=== PATIENT | female | born 1955 | race Caucasian/White ===

== ENCOUNTER → 2016-09-11 | Outpatient (CLI) | payer OTHER ==
--- NOTE | 2016-09-11 09:24 | REPMRS ---
Patient History The patient states she has not had a clinical breast exam in over a year. Patient is postmenopausal and has history of other cancer at age 47. Family history of colorectal cancer in maternal grandmother at age 50 or over and breast cancer in maternal grandmother at age 50 or over. Digital Woman Screen Mammo: September 11, 2016 - Exam #: [id number] Bilateral CC and MLO view(s) were taken. Technologist: Tereza Jacobs, Technologist Prior study comparison: January 18, 2015, digital woman screen mammo performed at [facility] [employer]. January 02, 2014, digital woman screen mammo performed at [facility] [facility]. FINDINGS: There are scattered fibroglandular densities. There has been no change in the appearance of the mammogram from the prior studies. There is a mild amount of residual fibroglandular tissue which is fairly symmetric. There is no interval development of dominant mass, architectural distortion, or clustered microcalcification suggestive of malignancy. ASSESSMENT: BI-RADS/ACR category 1 mammogram. Negative. Recommendation Routine screening mammogram in 1 year (for women over age 40). This mammogram was interpreted with the aid of an FDA-approved computer-aided dectection system. Electronically Signed By: Sonu Mustafa MD 09/11/16 0923
--- NOTE | 2016-09-14 09:56 | DEXA ---
AP SPINE L1 - L4 1.339 1.2 1.5 LT FEMUR TOTAL 0.999 -0.1 0.2 RT FEMUR TOTAL 0.980 -0.2 0.1 TOTAL BODY TOTAL OTHER DUAL FEMUR FRAX* ASSESSMENT Risk factors: None. 10 year probability of fracture Major osteoporotic fracture 6.6 % Hip fracture 0.3 % COMMENTS: Normal bone densitometry of the spine and hips. The density of the spine has increased 1.3% since 03/29/2008. The density of the left hip has decreased -11.2% since 03/29/2008. The density of the right hip has decreased 9.8% since 03/29/2008. The increased density of the spine does not represent a significant change. The decreased density of the left hip does represent a significant change. The decreased density of the right hip does represent a significant change. FOLLOW-UP: Recommendation for the next bone density exam: 5 years. JUAN
== END ==
LOC: M WHC 07:48
PROVIDERS: ATTEND Internal Medicine
DX: Z12.31 Encounter for screening mammogram for malignant neoplasm of breast (principal); M85.80 Other specified disorders of bone density and structure, unspecified site

== ENCOUNTER → 2017-08-16 | Outpatient (CLI) | payer OTHER ==
--- NOTE | 2017-08-16 11:57 | REP ---
RIGHT SHOULDER SERIES: Three views. HISTORY: Pain. FINDINGS: The right glenohumeral and acromioclavicular joints are normally aligned. Periarticular soft tissues are unremarkable. No erosive changes are seen. IMPRESSION: Negative right shoulder radiographs. Signed by Mynor Ren MD 08/16/2017 12:39 P
== END ==
LOC: M WUC 09:43
PROVIDERS: ATTEND Physician Assistant Medical
DX: M25.519 Pain in unspecified shoulder (principal)

== ENCOUNTER → 2017-12-28 | Outpatient (CLI) | payer OTHER | LOC: M RAD 11:15 | DX: M79.604 Pain in right leg (principal) | CPT/HCPCS: 93971 ==

== ENCOUNTER → 2018-04-25 | Outpatient (CLI) | payer OTHER | LOC: M WHC 15:21 | DX: Z12.31 Encounter for screening mammogram for malignant neoplasm of breast (principal) | CPT/HCPCS: 77067 ==

== ENCOUNTER → 2018-05-30 | Outpatient (REF) | payer OTHER | LOC: M LAB REF 17:12 | DX: N30.01 Acute cystitis with hematuria (principal) ==

== ENCOUNTER 2018-07-21 06:51 | Day surgery (SDC) | payer OTHER ==
[2018-07-21] MEDS: NS 1,000 ML IV (07:00)
[2018-07-21] MEDS ORDERED: PROPOFOL 200 MG/20 ML VIAL As Ordered ×2 (07:04→08:41)
[2018-07-21] MEDS ORDERED: LIDOCAINE 2% INJ 100 MG/5 ML SDV (FOR ANES.) As Ordered (07:04)
== END 2018-07-21 08:55 | disposition home or self-care (01) ==
LOC: M OPP 06:51
DX: Z12.11 Encounter for screening for malignant neoplasm of colon (principal); Z83.71 Family history of colonic polyps; G43.909 Migraine, unspecified, not intractable, without status migrainosus; M12.9 Arthropathy, unspecified; Z79.899 Other long term (current) drug therapy; Z78.0 Asymptomatic menopausal state
CPT/HCPCS: 45378

== ENCOUNTER → 2018-09-09 | Outpatient (REF) | payer OTHER ==
[~2018-09-09] MED LIST: DEPA1TAB3 PO; SUMA50TA2 PO; VERA240T6 PO
[2018-09-12 14:01] LABS: IRON (FE) 71 UG/DL (50-170); PERCENT SATURATION 19.4 % (13.2-45.0); TOTAL IRON BINDING CAPACITY 366 UG/DL (250-450); TOTAL PROTEIN 5.9 GM/DL (6.4-8.2)
[2018-09-12 15:38] LABS: VITAMIN B12 LEVEL 385 PG/ML
[2018-09-12 15:39] LABS: FOLATE 11.1 NG/ML
[2018-09-13 12:54] LABS: ALBUMIN 3.89 GM/DL (3.29-5.55); ALBUMIN % 65.9 % (55.8-66.1); ALPHA-1-GLOBULIN % 4.3 % (2.9-4.9); ALPHA-1-GLOBULINS 0.25 GM/DL (0.17-0.41); ALPHA-2-GLOBULINS 0.53 GM/DL (0.42-0.99); BETA-1-GLOBULINS % 6.7 % (4.7-7.2); BETA-2-GLOBULINS 0.25 GM/DL (0.19-0.55); BETA-2-GLOBULINS % 4.2 % (3.2-6.5); GAMMA GLOBULIN % 9.9 % (11.1-18.8); GAMMA GLOBULINS 0.58 GM/DL (0.65-1.58)
== END ==
LOC: M LAB REF 11:48
PROVIDERS: ATTEND Internal Medicine
DX: D64.9 Anemia, unspecified (principal)

== ENCOUNTER → 2018-12-10 | Outpatient (REF) | payer OTHER | LOC: M LAB REF 09:21 | PROVIDERS: ATTEND Physician Assistant | DX: R30.0 Dysuria (principal) ==

== ENCOUNTER → 2018-12-24 | Outpatient (REF) | payer OTHER | LOC: M LAB REF 09:49 | PROVIDERS: ATTEND Physician Assistant | DX: R30.0 Dysuria (principal) ==

== ENCOUNTER → 2019-05-12 | Outpatient (CLI) | payer MEDICARE, OTHER ==
--- NOTE | 2019-05-12 12:28 | REPMRS ---
Patient History The patient states she has not had a clinical breast exam in over a year. Family history of colorectal cancer at age 50 or over and breast cancer at age 50 or over in maternal grandmother. No Hormone Replacement Therapy 3D TOMOSYNTHESIS WAS PERFORMED. [facility] lifetime risk for breast cancer is 8.6%. Digital Woman Screen Mammo: May 12, 2019 - Exam #: [id number] Bilateral CC and MLO view(s) were taken. Technologist: Carole Abdi Technologist Prior study comparison: April 25, 2018, bilateral digital woman screen mammo performed at [facility]. September 11, 2016, digital woman screen mammo performed at [facility]. FINDINGS: The breast tissue is heterogeneously dense. This may lower the sensitivity of mammography. There has been no change in the appearance of the mammogram from the prior studies. There is a moderate amount of residual fibroglandular tissue which is fairly symmetric. There is no interval development of dominant mass, areas of architectural distortion, or clustered microcalcification typical of malignancy. Assessment: BI-RADS/ACR category 1 mammogram. Negative Mammogram. Recommendation Routine screening mammogram in 1 year (for women over age 40). This mammogram was interpreted with the aid of an FDA-approved computer-aided dectection system. Electronically Signed By: Sonu Mustafa MD 05/12/19 0872
== END ==
LOC: M WHC 10:15
PROVIDERS: ATTEND Internal Medicine
DX: Z12.31 Encounter for screening mammogram for malignant neoplasm of breast (principal); Z80.3 Family history of malignant neoplasm of breast; Z80.0 Family history of malignant neoplasm of digestive organs

== ENCOUNTER → 2020-06-05 | Outpatient (CLI) | payer MEDICARE, OTHER ==
--- NOTE | 2020-06-05 15:31 | REPMRS ---
Patient History The patient states she has not had a clinical breast exam in over a year. Family history of colorectal cancer at age 50 or over and breast cancer at age 50 or over in maternal grandmother. No Hormone Replacement Therapy 3D TOMOSYNTHESIS WAS PERFORMED. [facility] for [facility] 8.1%. Volpara density b. Digital Woman Screen Mammo: June 05, 2020 - Exam #: [id number] Bilateral CC and MLO view(s) were taken. Technologist: Carline Thornton, Technologist Prior study comparison: May 12, 2019, bilateral digital woman screen mammo performed at [facility]. April 25, 2018, bilateral digital woman screen mammo performed at [facility]. FINDINGS: There are scattered fibroglandular densities. There has been no change in the appearance of the mammogram from the prior studies. There is a mild amount of residual fibroglandular tissue which is fairly symmetric. There is no interval development of dominant mass, architectural distortion, or clustered microcalcification suggestive of malignancy. Assessment: BI-RADS/ACR category 1 mammogram. Negative Mammogram. Recommendation Routine screening mammogram in 1 year (for women over age 40). This mammogram was interpreted with the aid of an FDA-approved computer-aided dectection system. Electronically Signed By: Sonu Mustafa MD 06/05/20 [id number]
== END ==
LOC: M WHC 13:40
PROVIDERS: ATTEND Internal Medicine
DX: Z12.31 Encounter for screening mammogram for malignant neoplasm of breast (principal)

== ENCOUNTER 2020-07-10 12:27 | Inpatient (IN) | payer MEDICARE, OTHER ==
[~2020-07-10] VITALS: Ht 172.7 cm; Wt 99.4 kg
--- NOTE | 2020-07-10 13:51 | REP ---
INDICATION: CHEST PAIN. COMPARISON: None. TECHNIQUE: Semi-erect AP portable exam. FINDINGS: Monitoring electrodes are seen. The lungs are well inflated and clear. Pleural angles are sharp. Heart is not felt to be enlarged. There is evidence of a hiatal hernia behind the heart. Pulmonary vasculature is not increased. No significant bony abnormality. IMPRESSION: Hiatal hernia. Otherwise no acute disease. <Electronically signed by Jesus Ren > 07/10/20 [id number]
[2020-07-10 14:02] LABS: BASO # 0.1 10^3/uL (0.0-0.2); BASO % 0.9 % (0.0-1.0); EOS % 0.8 % (0.0-3.0); HEMATOCRIT 31.1 % (36.0-47.0); HEMOGLOBIN 8.8 g/dl (12.0-15.5); LYMPH # 1.3 10^3/uL (1.5-5.0); LYMPH % 24.4 % (24.0-44.0); MEAN CORPUSCULAR HEMOGLOBIN 20.7 pg (27.0-33.0); MEAN CORPUSCULAR HGB CONC 28.3 g/dl (32.0-36.5); MONO # 0.7 10^3/uL (0.0-0.8); MONO % 12.4 % (0.0-5.0); NEUTROPHILS # 3.3 10^3/uL (1.5-8.5); NEUTROPHILS % 61.1 % (36.0-66.0); PLATELET COUNT, AUTOMATED 252 10^3/uL (150-450); RED BLOOD COUNT 4.26 10^6/uL (4.00-5.40); WHITE BLOOD COUNT 5.3 10^3/uL (4.0-10.0)
[2020-07-10 14:26] LABS: ALBUMIN 3.2 GM/DL (3.2-5.2); ALT/SGPT 16 U/L (12-78); BILIRUBIN,DIRECT < 0.1 MG/DL (0.0-0.2); BILIRUBIN,TOTAL 0.2 MG/DL (0.2-1.0); LIPASE 91 U/L (73-393); TOTAL PROTEIN 6.2 GM/DL (6.4-8.2)
[2020-07-10] MEDS ORDERED: ISOVUE-370 76% 100ML VIAL As Ordered ONE (15:00)
[2020-07-10 15:16] LABS: NT-PRO BNP 43 PG/ML (<125)
--- NOTE | 2020-07-10 16:00 | REP ---
INDICATION: shortness of breath r/o PE. COMPARISON: Portable chest 07/10/2020 TECHNIQUE: CT angiogram chest performed following the intravenous administration of 100 cc of Isovue 370. Sagittal and coronal reconstruction images are performed. FINDINGS: Lungs: Clear, no infiltrate or nodule. Mediastinum: Moderate-sized hiatal hernia. No pathologic sized mediastinal or hilar adenopathy.. Pulmonary arteries: There are bilateral of filling defects involving both lower lobes in multiple segments. Also appears to be filling defect at the proximal course of the right upper lobe pulmonary artery and the proximal right middle lobe.. Posterior segment of the left upper lobe and anterior segment show some thrombi in their proximal course as well as multiple segments of the left lower lobe. No main, proximal right or left pulmonary artery thrombi or saddle embolus. Bruna: No adenopathy. Axilla: No adenopathy. Pleura: No effusion. Heart: Not enlarged. Thoracic aorta: No aneurysm or dissection. Upper abdominal structures: Moderately large incarcerated but not strangulated hiatal hernia. The upper abdominal organs visible were grossly unremarkable. Visualized osseous structures: Degenerative changes in the spine, age appropriate. No other bony finding. IMPRESSION: There are extensive pulmonary emboli involving bilateral lung bolaños and all 5 lobes with segmental arteries and some lobar arteries involved. No proximal or saddle embolus in the mediastinum. No effusion or infiltrates. No mediastinal or hilar adenopathy. Moderate-sized fixed hiatal hernia. No other significant finding. Critical Findings: Bilateral extensive pulmonary emboli involving all lobes. The critical information above was relayed directly by me by telephone to SARAY MEDEIROS on 07/10/2020 at 3:55 pm with readback verification. <Electronically signed by Leeroy Brannon > 07/10/20 [id number]
--- NOTE | 2020-07-10 16:22 | REP ---
INDICATION: pain, swelling with PE COMPARISON: None. TECHNIQUE: Real time compression and duplex Doppler interrogation of the left lower extremity deep venous system is performed. FINDINGS: The left common femoral, superficial femoral and popliteal veins are fully compressible with transducer pressure and demonstrate normal spontaneous and phasic flow, without evidence of deep venous thrombosis. IMPRESSION: No evidence of deep venous thrombosis of the left lower extremity femoral popliteal venous system. <Electronically signed by Sonu Mustafa > 07/10/20 [id number]
[2020-07-10] MEDS ORDERED: HEPARIN DRIP 25,000 UNITS in IV 1 EA IV SCH (16:54)
[2020-07-10] MEDS ORDERED: HEPARIN SOD (PORCINE) 5000UNITS/ML 1ML VIAL/SYRINGE IV ONE (17:00)
[2020-07-10 17:23] LABS: INR 0.94; PROTHROMBIN TIME 12.8 SECONDS (12.5-14.3)
[2020-07-10 17:24] LABS: PARTIAL THROMBOPLASTIN TIME 29.3 SECONDS (24.2-38.5)
[2020-07-10] MEDS ORDERED: VERA240C PO (17:26)
[2020-07-10] MEDS ORDERED: DIVA500T9 PO (17:26)
[2020-07-10] MEDS ORDERED: MAALOX 30 ML SUSP *UDC PO PRN (18:15)
[2020-07-10] MEDS ORDERED: MOM 30ML SUSPENSION UDC PO PRN (18:15)
[2020-07-10] MEDS ORDERED: ACETAMINOPHEN TAB 650MG DOSE (2X325MG) PO PRN (18:15)
--- NOTE | 2020-07-10 18:24 | HPEPDOC ---
General Date of Admission 07/10/20 Date of Service: Jul 10, 2020 Chief Complaint The patient is a 65-year-old female admitted with a reason for visit of Shortness Of Breath. Source: Patient History of Present Illness 65 year old female with PMH of only Migraines presented to the ED with 1 day history of exertional dyspnea and palpitations. She was in her usal state of luis miguel yesterday. last night she was woken up from deep sleep with severe left calf cramping pain. It was 8/10 in intensity and lasted for several minutes then slowly improved with massaging the calf but did not go away completely. Today after climbing a flight of stairs in her home she became extremely winded and had to sit down for several minutes to catch her breath. All morning she has been feeling very winded and was getting winded even on talking on the phone with her daughter. SHe called her PMDs office and she was instructed to come to ED. In ED CT angio of [facility] chest showed bilateral pulmonary embolism. Left leg doppler was negative for DVT. SHe did nto have any recent travel . Her last tra rikki was in beginning of April by car to [place] and back the same day about total 5 hours by car. Home Medications Scheduled Apixaban (Eliquis) 5 Mg Tablet, 1 TAB PO BID Divalproex Sodium (Divalproex Sodium ER) 500 Mg Tab.er.24h, 500 MG PO BID, (Reported) Verapamil HCl (Verapamil ER) 240 Mg Cap24h.pel, 240 MG PO QHS, (Reported) Scheduled PRN Sumatriptan Succinate (Sumatriptan Succinate) 50 Mg Tab, 50 MG PO ASDIRECTED PRN for MIGRAINE, (Reported) Allergies Coded Allergies: amoxicillin (Verified Allergy, Unknown, 07/10/20) erythromycin base (Verified Allergy, Unknown, 07/10/20) Past Medical History Medical History Migraine Surgical History Right knee arthroscopy an meniscus repair tonsillectomy Family History Significant Family History: Cancer (colon cncer in grandmother, Mother melanome, father skin cancers) No clotting history in the family Social History * Smoker: non-smoker Alcohol: Denies Drugs: denies A-FIB/CHADSVASC A-FIB History Current/History of A-Fib/PAF?: No Review of Systems Constitutional: Reports: Weakness, Fatigue; Denies: Chills, Fever, Night Sweats Eyes: Denies: Pain, Vision change ENT: Reports: Head Aches; Denies: Ear Pain, Dysphagia Skin: Denies: Rash, Lesions, Breakdown Pulmonary: Reports: Dyspnea Cardiovascular: Reports: Palpitations Gastrointestinal: Reports: Constipation; Denies: Nausea, Vomiting, Abdominal Pain, Diarrhea Genitourinary: Denies: Dysuria, Frequency, Incontinence, Retention Hematologic: Denies: Bruising, Bleeding Excessively Musculoskeletal: Reports: Leg Pain (left) Neurological: Denies: Weakness, Numbness, Change in speech, Confusion Physical Examination General Exam: Positive: Alert, Cooperative, No Acute Distress Eye Exam: Positive: PERRLA, Conjunctiva & lids normal, EOMI; Negative: Sclera icteric ENT Exam: Positive: Atraumatic, Mucous membr. moist/pink, Pharynx Normal Neck Exam: Positive: Supple; Negative: JVD, thyromegaly Chest Exam: Positive: Clear to auscultation, Normal air movement Heart Exam: Positive: Rate Normal, Regular Rhythm, Normal S1, Normal S2; Negative: Murmurs, Rubs Telemetry: Positive: No significant arrhythmia Abdomen Exam: Positive: Normal bowel sounds, Soft; Negative: Tenderness, Hepatospenomegaly Extremity Exam: Positive: Normal pulses, Tenderness (in left calf); Negative: Clubbing, Cyanosis, Edema Skin Exam: Positive: Nl turgor and temperature; Negative: Breakdown, Lesion Neuro Exam: Positive: Normal Speech, Normal Tone, Cranial Nerves 3-12 NL Psych Exam: Positive: Memory Intact, Oriented x 3 Vital Signs Vital Signs Date Time Temp Pulse Resp B/P (MAP) Pulse Ox O2 Delivery O2 Flow Rate FiO2 07/10/20 15:40 81 16 131/76 (94) Room Air 07/10/20 15:30 95 07/10/20 12:28 96.8 Laboratory Data Labs 24H Laboratory Tests 2 07/10/20 13:37: POC Troponin I (Misc) 0.02 07/10/20 13:38: Prothrombin Time 12.8, Prothromb Time International Ratio 0.94, Activated Partial Thromboplast Time 29.3 07/10/20 13:50: Immature Granulocyte % (Auto) 0.4, Neutrophils (%) (Auto) 61.1, Lymphocytes (%) (Auto) 24.4, Monocytes (%) (Auto) 12.4H, Eosinophils (%) (Auto) 0.8, Basophils (%) (Auto) 0.9, Neutrophils # (Auto) 3.3, Lymphocytes # (Auto) 1.3L, Monocytes # (Auto) 0.7, Eosinophils # (Auto) 0.0, Basophils # (Auto) 0.1, Nucleated Red Blood Cells % (auto) 0.0, Total Bilirubin 0.2, Direct Bilirubin < 0.1, Aspartate Amino Transf (AST/SGOT) 10, Alanine Aminotransferase (ALT/SGPT) 16, Alkaline Phosphatase 52, LL-Zwb-U-Type Natriuretic Peptide 43, Total Protein 6.2L, Albumin 3.2, Albumin/Globulin Ratio 1.1L, Lipase 91, Thyroid Stimulating Hormone (TSH) 1.880 07/10/20 13:51: POC Lactate (Misc Panel) 1.77 07/10/20 13:55: POC Glucose (Misc Panel) 106H, POC Sodium (Misc Panel) 141, POC Potassium (Misc Panel) 4.1, POC Chloride (Misc Panel) 107, POC Total CO2 (Misc Panel) 25.0, POC Blood Urea Nitrogen (Misc Panel 14, POC Ionized Calcium (Misc Panel) 5.0, POC Creatinine (Misc Panel) 0.6, POC Hematocrit (Misc Panel) 29.0L CBC/BMP Laboratory Tests 07/10/20 13:50 Assessment/Plan 65 year old female with PMH of only Migraines presented to the ED with 1 day history of exertional dyspnea and palpitations. She was in her usal state of luis miguel yesterday. last night she was woken up from deep sleep with severe left calf cramping pain. It was 8/10 in intensity and lasted for several minutes then slowly improved with massaging the calf but did not go away completely. Today after climbing a flight of stairs in her home she became extremely winded and had to sit down for several minutes to catch her breath. All morning she has been feeling very winded and was getting winded even on talking on the phone with her daughter. She called her PMDs office and she was instructed to come to ED. In ED CT angio of the chest showed bilateral pulmonary embolism. Acute bilateral Pulmonary embolism will send hypercoagulable work up heparin infusion will scan the right leg also PTT q 6 hours. Anemia Unknown acute or chronic. will get iron profile, vit b12 and folate, stool for occult blood request records from PMD Migraine continue home meds. if hypotensive will hold verapamil. 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 Plan / VTE VTE Prophylaxis Ordered?: Yes LUIS ENRIQUE ROSADO MD Jul 10, 2020 18:24
[2020-07-10 18:50] VITALS: BP 160/81
--- NOTE | 2020-07-10 19:17 | REPVR ---
PROCEDURE INFORMATION: Exam: US Duplex Right Upper Extremity Veins, Limited Exam date and time: 07/10/2020 7:02 PM Age: 65 years old Clinical indication: Pain; Leg, lower; Right; Additional info: Pulmonary embolism TECHNIQUE: Imaging protocol: Real-time Duplex ultrasound of the Right Upper Extremity with 2-D glover scale, color Doppler flow and spectral waveform analysis with image documentation. Limited exam focused on the right upper extremity veins. COMPARISON: No relevant prior studies available. FINDINGS: Right deep veins: Unremarkable. Axillary and brachial veins are patent throughout without thrombus. Normal Doppler waveforms. Normal compressibility and/or augmentation response. Visualized internal jugular and subclavian veins are patent. Right superficial veins: Unremarkable. Visualized cephalic and basilic veins are patent without thrombus. Soft tissues: Unremarkable. IMPRESSION: No deep venous thrombus demonstrated in the right lower extremity. Electronically signed by: Yariel Buck On 07/10/2020 19:16:13 PM
[2020-07-10 19:57] LABS: C REACTIVE PROTEIN QUANTITATIV < 0.30 MG/DL (0.00-0.30)
[2020-07-10 20:17] LABS: ERYTHROCYTE SEDIMENTATION RATE 7 mm/hr (0-30)
--- NOTE | 2020-07-10 20:54 | ECGEPIP ---
[facility] - ED Test Date: 2020-07-10 Pat Name: ARMANDO PENALOZA Department: Room: - Gender: Female Advanced Clinical Specialist: BRIAN : 1955 Requested By: LARS Grider Order Number: [id number] Reading MD: Lars Miller Measurements Intervals [place] Rate: 88 P: 39 TN: 175 QRS: -23 QRSD: 91 T: 37 QT: 329 QTc: 400 Interpretive Statements SINUS RHYTHM INFERIOR MYOCARDIAL INFARCTION, PROBABLY OLD Delayed anterior R wave progression Baseline artifact Comparison tracing not on file Electronically Signed on 07-10-2020 20:54:44 EST by Lars Miller
[2020-07-10] MEDS ORDERED: SUMAtriptan SUCCINATE 25 MG TAB PO PRN (23:00)
[2020-07-10] MEDS: DIVALPROEX 500MG *ER* TAB PO SCH (23:29)
[2020-07-10] MEDS: VERAPAMIL 120 MG SR TAB PO SCH (23:30)
[2020-07-11] VITALS: BP 125/73
[2020-07-11] MEDS: HEPARIN SOD (PORCINE) 5000UNITS/ML 1ML VIAL/SYRINGE IV PRN (01:49)
[2020-07-11 04:00] VITALS: BP 103/68
[2020-07-11 05:23] LABS: BASO # 0.1 10^3/uL (0.0-0.2); EOS # 0.1 10^3/uL (0.0-0.5); EOS % 1.4 % (0.0-3.0); HEMATOCRIT 27.1 % (36.0-47.0); HEMOGLOBIN 7.8 g/dl (12.0-15.5); LYMPH # 2.1 10^3/uL (1.5-5.0); LYMPH % 42.6 % (24.0-44.0); MEAN CORPUSCULAR HEMOGLOBIN 20.9 pg (27.0-33.0); MEAN CORPUSCULAR HGB CONC 28.8 g/dl (32.0-36.5); MEAN CORPUSCULAR VOLUME 72.7 fl (80.0-96.0); MONO # 0.6 10^3/uL (0.0-0.8); NEUTROPHILS # 2.2 10^3/uL (1.5-8.5); NEUTROPHILS % 43.6 % (36.0-66.0); PLATELET COUNT, AUTOMATED 214 10^3/uL (150-450); RED BLOOD COUNT 3.73 10^6/uL (4.00-5.40)
[2020-07-11 05:50] LABS: BLOOD UREA NITROGEN 14 MG/DL (7-18); CALCIUM LEVEL 8.5 MG/DL (8.8-10.2); CARBON DIOXIDE LEVEL 25 MEQ/L (21-32); CHLORIDE LEVEL 112 MEQ/L (98-107); GLOMERULAR FILTRATION RATE > 60.0 (>45); GLUCOSE, FASTING 93 MG/DL (70-100); POTASSIUM SERUM 4.1 MEQ/L (3.5-5.1); SODIUM LEVEL 144 MEQ/L (136-145)
[2020-07-11 07:58] LABS: FERRITIN 10 NG/ML (8-252); IRON (FE) 22 UG/DL (50-170); PERCENT SATURATION 5.9 % (13.2-45.0); TOTAL IRON BINDING CAPACITY 371 UG/DL (250-450)
[2020-07-11 08:00] VITALS: BP 122/70
[2020-07-11] MEDS: DIVALPROEX 500MG *ER* TAB PO SCH ×2 (09:21→21:45)
[2020-07-11 09:54] LABS: VITAMIN B12 LEVEL 687 PG/ML (247-911)
[2020-07-11 09:56] LABS: FOLATE 12.5 NG/ML (>5.4)
--- NOTE | 2020-07-11 11:25 | IPNPDOC ---
Subjective Date Seen The patient was seen on 07/11/20. Subjective Chief Complaint/HPI Still has dyspnea on exertion however says feels better than yesterday. Has requested records from Dr Castellon's office for previous blood work. Objective Physical Examination General Exam: Positive: Alert, Cooperative, No Acute Distress Eye Exam: Positive: PERRLA, Conjunctiva & lids normal, EOMI; Negative: Sclera icteric ENT Exam: Positive: Atraumatic, Mucous membr. moist/pink, Pharynx Normal Neck Exam: Positive: Supple; Negative: JVD, thyromegaly Chest Exam: Positive: Clear to auscultation, Normal air movement Heart Exam: Positive: Rate Normal, Regular Rhythm, Normal S1, Normal S2; Negative: Murmurs, Rubs Telemetry: Positive: No significant arrhythmia Abdomen Exam: Positive: Normal bowel sounds, Soft; Negative: Tenderness, Hepatospenomegaly Extremity Exam: Positive: Normal pulses, Tenderness (in left calf); Negative: Clubbing, Cyanosis, Edema Skin Exam: Positive: Nl turgor and temperature; Negative: Breakdown, Lesion Neuro Exam: Positive: Normal Speech, Normal Tone, Cranial Nerves 3-12 NL Psych Exam: Positive: Memory Intact, Oriented x 3 Assessment /Plan Assessment 65 year old female with PMH of only Migraines presented to the ED with 1 day history of exertional dyspnea and palpitations. She was in her usal state of luis miguel yesterday. last night she was woken up from deep sleep with severe left calf cramping pain. It was 8/10 in intensity and lasted for several minutes then slowly improved with massaging the calf but did not go away completely. Today after climbing a flight of stairs in her home she became extremely winded and had to sit down for several minutes to catch her breath. All morning she has been feeling very winded and was getting winded even on talking on the phone with her daughter. She called her PMDs office and she was instructed to come to ED. In ED CT angio of the chest showed bilateral pulmonary embolism. Acute bilateral Pulmonary embolism hypercoagulable work up ordered heparin infusion No DVT noted. PTT q 6 hours. Iron deficiency Anemia hh 8.8 to 7.9 today . NO overt bleeding. No h/o Anemia Colonoscopy in 2018 was normal. will monitor hh continue with Heparin infusion. will consult hematology Migraine continue home meds. if hypotensive will hold verapamil. 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 Plan/VTE VTE Prophylaxis Ordered?: Yes VS, I&O, 24H, Fishbone Vital Signs/I&O Vital Signs Date Time Temp Pulse Resp B/P (MAP) Pulse Ox O2 Delivery O2 Flow Rate FiO2 07/11/20 08:00 97.2 78 18 122/70 (87) 93 Room Air I&O- Last 24 Hours up to 6 AM 07/11/20 06:00 Intake Total 44 ml Output Total 0 ml Balance 44 ml Laboratory Data 24H LABS Laboratory Tests 2 07/10/20 13:37: POC Troponin I (Misc) 0.02 07/10/20 13:38: Prothrombin Time 12.8, Prothromb Time International Ratio 0.94, Activated Pa rtial Thromboplast Time 29.3 07/10/20 13:50: Immature Granulocyte % (Auto) 0.4, Neutrophils (%) (Auto) 61.1, Lymphocytes (%) (Auto) 24.4, Monocytes (%) (Auto) 12.4H, Eosinophils (%) (Auto) 0.8, Basophils (%) (Auto) 0.9, Neutrophils # (Auto) 3.3, Lymphocytes # (Auto) 1.3L, Monocytes # (Auto) 0.7, Eosinophils # (Auto) 0.0, Basophils # (Auto) 0.1, Nucleated Red Blood Cells % (auto) 0.0, Erythrocyte Sedimentation Rate 7, Total Bilirubin 0.2, Direct Bilirubin < 0.1, Aspartate Amino Transf (AST/SGOT) 10, Alanine Aminotransferase (ALT/SGPT) 16, Alkaline Phosphatase 52, C-Reactive Protein, Quantitative < 0.30, KZ-Eeu-Z-Type Natriuretic Peptide 43, Total Protein 6.2L, Albumin 3.2, Albumin/Globulin Ratio 1.1L, Lipase 91, Thyroid Stimulating Hormone (TSH) 1.880 07/10/20 13:51: POC Lactate (Misc Panel) 1.77 07/10/20 13:55: POC Glucose (Misc Panel) 106H, POC Sodium (Misc Panel) 141, POC Potassium (Misc Panel) 4.1, POC Chloride (Misc Panel) 107, POC Total CO2 (Misc Panel) 25.0, POC Blood Urea Nitrogen (Misc Panel 14, POC Ionized Calcium (Misc Panel) 5.0, POC Creatinine (Misc Panel) 0.6, POC Hematocrit (Misc Panel) 29.0L 07/10/20 20:01: Activated Partial Thromboplast Time 125.2*H 07/10/20 20:04: 07/11/20 00:13: Activated Partial Thromboplast Time 29.2 07/11/20 04:46: Immature Granulocyte % (Auto) 0.4, Neutrophils (%) (Auto) 43.6, Lymphocytes (%) (Auto) 42.6, Monocytes (%) (Auto) 11.0H, Eosinophils (%) (Auto) 1.4, Basophils (%) (Auto) 1.0, Neutrophils # (Auto) 2.2, Lymphocytes # (Auto) 2.1, Monocytes # (Auto) 0.6, Eosinophils # (Auto) 0.1, Basophils # (Auto) 0.1, Nucleated Red Blood Cells % (auto) 0.0, Activated Partial Thromboplast Time > 240.0*H, Anion Gap 7L, Glomerular Filtration Rate > 60.0, Calcium Level 8.5L, Iron Level 22L, Total Iron Binding Capacity 371, Transferrin % Saturation 5.9L, Ferritin 10, Vitamin B12 Level 687, Folate 12.5 CBC/BMP Laboratory Tests 07/10/20 13:50 07/11/20 04:46 LUIS ENRIQUE ROSADO MD Jul 11, 2020 11:24
[2020-07-11 12:00] VITALS: BP 138/84
[2020-07-11] MEDS ORDERED: IRON SUCROSE 500 MG in NS 250 ML IV ONE (15:00)
[2020-07-11] MEDS: HEPARIN DRIP 25,000 UNITS in IV 1 EA IV SCH (15:44)
[2020-07-11 16:00] VITALS: BP 124/73
--- NOTE | 2020-07-11 17:39 | CR.PDOC ---
General Date of Consultation: Jul 11, 2020 Consultation REASON FOR CONSULTATION/CHIEF COMPLAINT: pulmonary embolism and anemia . HISTORY OF PRESENT ILLNESS: [This is a 65 year old lady. She has migraines. She takes Verapamil and Depakote to prevent her migraines She is now admitted with shortness of breath. work up found a hiatal hernia, Iron deficiency and bilateral pulmonary embolism. ]. ALLERGIES: Please see below. HOME MEDICATIONS: Please see below. PAST MEDICAL HISTORY: 1. [migraines ]. 2. . PAST SURGICAL HISTORY: 1. [tonsillectomy ] 2. [ surgery for torn meniscus in her knee. ] FAMILY HISTORY: Father: [father had atrial fibrillation ] Mother: [dementia ] Siblings: Children: [alive and well ] Hereditary Diseases: Unexpected deaths due to medical reasons: SOCIAL HISTORY: Marital status and/or living arrangements: Children: Employment: Tobacco use:[denies ] ETOH: Illicit drug use: IV drug use: Other relevant social factors: REVIEW OF SYSTEMS: CONSTITUTIONAL: [ no fever no chill and no malaise ]. HEENT: [she has a headaches . This is not her typical migraine]. CARDIOVASCULAR: [ no palpitations ]. RESPIRATORY: [she is short of breath . GENITOURINARY: [no dysuria no hematuria ]. MUSCULOSKELETAL: [cramp in her left leg ]. GASTROINTESTINAL: [she has dyspepsia a churning in her stomach . She has black stools ]. SKIN: [no bruising ]. NEUROLOGICAL: [headaches ]. PSYCHIATRIC: . ENDOCRINE: . HEMATOLOGIC/LYMPHATIC: [denies easy brusing ]. ALLERGIC/IMMUNOLOGIC: . PHYSICAL EXAMINATION: VITAL SIGNS: Please see below. GENERAL APPEARANCE: awake and alert. oriented to person and place. . HEENT: [normocephalic atraumatic ]. RESPIRATORY: [bilateral breath sounds no wheezing ]. CARDIOVASCULAR: [Regular rate and rhythm ]. ABDOMEN: soft non tender . EXTREMITIES: [no pedal edema ]. NEUROLOGICAL: [cranial nerves grossly intact. moving all extremities. normal speech and hearing ]. PSYCHIATRIC: [normal mood ]. LABORATORY DATA: Please see below. ASSESSMENT/PLAN: 1. [Iron deficiency anemia ]. 2. [Hiatal hernia ]. 3. Black stools consider upper gastrointestinal bleeding . 4. Pulmonary embolism. Plan: Check her stools for blood . If stool occult is positive for blood then this might be a good time to do a bleeding scan to localize the source of bleeding. Consider getting a gastroenterology consult. Serial monitor her hemoglobin. Vital Signs/I&O Vital Signs Date Time Temp Pulse Resp B/P (MAP) Pulse Ox O2 Delivery O2 Flow Rate FiO2 07/11/20 12:00 96.7 78 18 138/84 (102) 96 Room Air I&O- Last 24 Hours up to 6 AM 07/11/20 05:59 Intake Total 44 ml Balance 44 ml Laboratory Data Labs 24H Laboratory Tests 2 07/10/20 20:01: Activated Partial Thromboplast Time 125.2*H 07/10/20 20:04: 07/11/20 00:13: Activated Partial Thromboplast Time 29.2 07/11/20 04:46: Activated Partial Thromboplast Time > 240.0*H, Immature Granulocyte % (Auto) 0.4, Neutrophils (%) (Auto) 43.6, Lymphocytes (%) (Auto) 42.6, Monocytes (%) (Auto) 11.0H, Eosinophils (%) (Auto) 1.4, Basophils (%) (Auto) 1.0, Neutrophils # (Auto) 2.2, Lymphocytes # (Auto) 2.1, Monocytes # (Auto) 0.6, Eosinophils # (Auto) 0.1, Basophils # (Auto) 0.1, Nucleated Red Blood Cells % (auto) 0.0, Anion Gap 7L, Glomerular Filtration Rate > 60.0, Calcium Level 8.5L, Iron Level 22L, Total Iron Binding Capacity 371, Transferrin % Saturation 5.9L, Ferritin 10, Vitamin B12 Level 687, Folate 12.5 07/11/20 13:29: Activated Partial Thromboplast Time 161.9*H 07/11/20 13:55: Lab Scanned Report Miscellaneous Lab CBC/BMP Laboratory Tests 07/11/20 04:46 Allergies Coded Allergies: amoxicillin (Verified Allergy, Unknown, 07/10/20) erythromycin base (Verified Allergy, Unknown, 07/10/20) Home Medications Scheduled Divalproex Sodium (Divalproex Sodium ER) 500 Mg Tab.er.24h, 500 MG PO BID, (Reported) Verapamil HCl (Verapamil ER) 240 Mg Cap24h.pel, 240 MG PO QHS, (Reported) Scheduled PRN Sumatriptan Succinate (Sumatriptan Succinate) 50 Mg Tab, 50 MG PO ASDIRECTED PRN for MIGRAINE, (Reported) NALINI RIVAS MD Jul 11, 2020 17:39
[2020-07-11 18:23] LABS: HEMATOCRIT 26.2 % (36.0-47.0); HEMOGLOBIN 7.9 g/dl (12.0-15.5)
[2020-07-11] MEDS: GASTROGRAFIN SOLUTION 30ML PO SCH ×2 (18:36→19:06)
[2020-07-11 19:00] VITALS: BP 145/76
[2020-07-11] MEDS ORDERED: ISOVUE-370 76% 100ML VIAL As Ordered ONE (19:45)
--- NOTE | 2020-07-11 21:20 | REPVR ---
PROCEDURE INFORMATION: Exam: CT Abdomen And Pelvis With Contrast Exam date and time: 07/11/2020 8:32 PM Age: 65 years old Clinical indication: Other: Iron def anemia; Additional info: Iron def anemia with acute pe with family h/o colon cancer TECHNIQUE: Imaging protocol: Computed tomography of the abdomen and pelvis with intravenous contrast. Radiation optimization: All CT scans at this facility use at least one of these dose optimization techniques: automated exposure control; mA and/or kV adjustment per patient size (includes targeted exams where dose is matched to clinical indication); or iterative reconstruction. Contrast material: ISOVUE 370; Contrast volume: 100 ml; Contrast route: INTRAVENOUS (IV); COMPARISON: No relevant prior studies available. FINDINGS: Mediastinal space: There is a large hiatal hernia. Liver: Normal. No mass. Gallbladder and bile ducts: Normal. No calcified stones. No ductal dilation. Pancreas: Normal. No ductal dilation. Spleen: Normal. No splenomegaly. Adrenal glands: Normal. No mass. Kidneys and ureters: Small cysts in both kidneys. No hydronephrosis. Stomach and bowel: Unremarkable. No obstruction. No mucosal thickening. No mass or inflammatory changes. Appendix: No evidence of appendicitis. Intraperitoneal space: Unremarkable. No free air. No significant fluid collection. Vasculature: Pulmonary emboli are noted in both lower lobes. Aorta is normal size. No aneurysm or dissection. Lymph nodes: Unremarkable. No enlarged lymph nodes. Urinary bladder: Unremarkable as visualized. Reproductive: Unremarkable as visualized. Bones/joints: There are advanced degenerative changes in the spine and pelvis. Soft tissues: Unremarkable. IMPRESSION: 1. Bilateral lower lobe pulmonary emboli, similar to the prior chest CT. 2. Large hiatal hernia. 3. No acute findings. COMMENTS: Consistent with the [employer]'s Incidental Findings Committee white paper (J Am Kain Radiol 2018): Any incidental renal lesion less than 1 cm or classified as too small to characterize, or any incidental cystic renal lesion characterized as simple-appearing, is likely benign. No follow-up imaging is recommended for these lesions per consensus recommendations based on imaging criteria. Electronically signed by: Cholo Araya On 07/11/2020 21:20:01 PM
[2020-07-11] MEDS: VERAPAMIL 120 MG SR TAB PO SCH (21:45)
[2020-07-12] VITALS (7 sets, daily range): BP systolic 104–119; BP diastolic 60–74
[2020-07-12 05:34] LABS: BASO # 0.1 10^3/uL (0.0-0.2); BASO % 0.7 % (0.0-1.0); EOS % 0.3 % (0.0-3.0); HEMATOCRIT 28.2 % (36.0-47.0); HEMOGLOBIN 8.2 g/dl (12.0-15.5); LYMPH # 1.2 10^3/uL (1.5-5.0); LYMPH % 17.2 % (24.0-44.0); MEAN CORPUSCULAR HEMOGLOBIN 21.1 pg (27.0-33.0); MEAN CORPUSCULAR HGB CONC 29.1 g/dl (32.0-36.5); MEAN CORPUSCULAR VOLUME 72.7 fl (80.0-96.0); MONO # 0.8 10^3/uL (0.0-0.8); MONO % 12.4 % (0.0-5.0); NEUTROPHILS # 4.7 10^3/uL (1.5-8.5); PLATELET COUNT, AUTOMATED 226 10^3/uL (150-450); RED BLOOD COUNT 3.88 10^6/uL (4.00-5.40); WHITE BLOOD COUNT 6.8 10^3/uL (4.0-10.0)
[2020-07-12 06:00] LABS: BLOOD UREA NITROGEN 14 MG/DL (7-18); CALCIUM LEVEL 8.6 MG/DL (8.8-10.2); CARBON DIOXIDE LEVEL 25 MEQ/L (21-32); CHLORIDE LEVEL 111 MEQ/L (98-107); CREATININE FOR GFR 0.69 MG/DL (0.55-1.30); GLOMERULAR FILTRATION RATE > 60.0 (>45); GLUCOSE, FASTING 108 MG/DL (70-100); SODIUM LEVEL 143 MEQ/L (136-145)
[2020-07-12] MEDS: HEPARIN SOD (PORCINE) 5000UNITS/ML 1ML VIAL/SYRINGE IV PRN (06:47)
[2020-07-12] MEDS: OMEPRAZOLE 20 MG CAP PO SCH (08:14)
[2020-07-12] MEDS: DIVALPROEX 500MG *ER* TAB PO SCH ×2 (08:14→21:25)
[2020-07-12 08:34] LABS: APPEARANCE, URINE CLEAR (CLEAR); BACTERIA, URINE AUTO NEGATIVE (NEGATIVE); BILIRUBIN, URINE AUTO NEGATIVE (NEGATIVE); BLOOD, URINE BLOOD NEGATIVE (NEGATIVE); COLOR, URINE YELLOW (YELLOW); GLUCOSE, URINE (UA) AUTO NEGATIVE (NEGATIVE); KETONE, URINE AUTO NEGATIVE (NEGATIVE); LEUKOCYTE ESTERASE, URINE AUTO NEGATIVE (NEGATIVE); NITRITE, URINE AUTO NEGATIVE (NEGATIVE); PROTEIN, URINE AUTO NEGATIVE (NEGATIVE); RBC, URINE AUTO 0 /HPF (0-3); SPECIFIC GRAVITY URINE AUTO 1.035 (1.002-1.035); SQUAMOUS EPITHELIAL CELL UR AU 2 /HPF (0-6); UROBILINOGEN, URINE AUTO 0.2 mg/dL (0.0-2.0); WBC, URINE AUTO 1 /HPF (0-3)
[2020-07-12] MEDS ORDERED: ELIQ5TAB PO (12:40)
--- NOTE | 2020-07-12 12:54 | IPNPDOC ---
Subjective Date Seen The patient was seen on 07/12/20. Subjective Chief Complaint/HPI Patient had severe crampy abdominal pain in the epigastrium and severe back pain after drinking the oral contrast. She then had 1 episode of large vomiting after which she felt better. Dylan is having dark stools but it is hard and difficult to push out. Today she does report that she has been having trouble eating fo the past several months and would feel full only after a few bites. SHe though has not lost any significant weight. No betsey blood in stools but stool for occult blood is positive. Objective Physical Examination General Exam: Positive: Alert, Cooperative, No Acute Distress Eye Exam: Positive: PERRLA, Conjunctiva & lids normal, EOMI; Negative: Sclera icteric ENT Exam: Positive: Atraumatic, Mucous membr. moist/pink, Pharynx Normal Neck Exam: Positive: Supple; Negative: JVD, thyromegaly Chest Exam: Positive: Clear to auscultation, Normal air movement Heart Exam: Positive: Rate Normal, Regular Rhythm, Normal S1, Normal S2; Negative: Murmurs, Rubs Telemetry: Positive: No significant arrhythmia Abdomen Exam: Positive: Normal bowel sounds, Soft; Negative: Tenderness, Hepatospenomegaly Extremity Exam: Positive: Normal pulses, Tenderness (in left calf); Negative: Clubbing, Cyanosis, Edema Skin Exam: Positive: Nl turgor and temperature; Negative: Breakdown, Lesion Neuro Exam: Positive: Normal Speech, Normal Tone, Cranial Nerves 3-12 NL Psych Exam: Positive: Memory Intact, Oriented x 3 Assessment /Plan Assessment 65 year old female with PMH of only Migraines presented to the ED with 1 day history of exertional dyspnea and palpitations. She was in her usal state of luis miguel yesterday. last night she was woken up from deep sleep with severe left calf cramping pain. It was 8/10 in intensity and lasted for several minutes then slowly improved with massaging the calf but did not go away completely. Today after climbing a flight of stairs in her home she became extremely winded and had to sit down for several minutes to catch her breath. All morning she has been feeling very winded and was getting winded even on talking on the phone with her daughter. She called her PMDs office and she was instructed to come to ED. In ED CT angio of the chest showed bilateral pulmonary embolism. Acute bilateral Pulmonary embolism hypercoagulable work up ordered heparin infusion No DVT noted. PTT q 6 hours. Acute on chronic Iron deficiency Anemia Probably has ongoing slow GIB. hh 8.2 Hb from sep 2019 from PMD was 10.0 Colonoscopy in 2018 was normal. given 500 mg of venofer stool occult blood x 1 positive will monitor hh continue with Heparin infusion. appreciate hematology input CT abd and pelvis with contrast negative except for hiatal hernia Planned for bleeding scan today. she will need EGD ad colonoscopy soon but in view of the acute Pulmonary embolism iis is safer to hold off for 6 weeks unless patient started bleeding profusely. Migraine continue home meds. if hypotensive will hold verapamil. 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 Hiatal hernia in CT will start on omeprazole Plan/VTE VTE Prophylaxis Ordered?: Yes VS, I&O, 24H, Fishbone Vital Signs/I&O Vital Signs Date Time Temp Pulse Resp B/P (MAP) Pulse Ox O2 Delivery O2 Flow Rate FiO2 07/12/20 04:00 97.7 86 18 110/60 (77) 90 Room Air I&O- Last 24 Hours up to 6 AM 07/12/20 07:00 Intake Total 1380 ml Output Total 300 ml Balance 1080 ml Laboratory Data 24H LABS Laboratory Tests 2 07/11/20 13:29: Activated Partial Thromboplast Time 161.9*H 07/11/20 13:55: Lab Scanned Report Miscellaneous Lab 07/11/20 21:44: Activated Partial Thromboplast Time 122.9*H 07/12/20 05:12: Activated Partial Thromboplast Time 56.4H, Immature Granulocyte % (Auto) 0.4, Neutrophils (%) (Auto) 69.0H, Lymphocytes (%) (Auto) 17.2L, Monocytes (%) (Auto) 12.4H, Eosinophils (%) (Auto) 0.3, Basophils (%) (Auto) 0.7, Neutrophils # (Auto) 4.7, Lymphocytes # (Auto) 1.2L, Monocytes # (Auto) 0.8, Eosinophils # (Auto) 0.0, Basophils # (Auto) 0.1, Nucleated Red Blood Cells % (auto) 0.0, Anion Gap 7L, Glomerular Filtration Rate > 60.0, Calcium Level 8.6L CBC/BMP Laboratory Tests 07/11/20 18:14 07/12/20 05:12 Microbiology Microbiology 07/11/20 Stool Occult Blood (SILVESTRE) - Final, Complete LUIS ENRIQUE ROSADO MD Jul 12, 2020 06:40
--- NOTE | 2020-07-12 14:01 | REP ---
INDICATION: falling hemoglobin balck stool s. COMPARISON: Comparison is made with CT imaging from July 11, 2020.. TECHNIQUE: 27.5 mCi of technetium 99 M RBC (Ultratag Kit) is administered. Sequence show flow images are obtained in the anterior projection and sequential 5 minutes follow-up images are acquired of the abdomen and pelvis for an imaging observation period of 60 minutes. FINDINGS: Expected blood pool uptake is seen in the liver spleen kidneys aorta and iliac vessels and vena cava. There is no evidence of colonic or small bowel tracer labeling. No evidence of localizable gastrointestinal bleeding seen. IMPRESSION: No evidence of localizable gastrointestinal bleeding seen. <Electronically signed by Jesus Ren > 07/12/20 [id number]
--- NOTE | 2020-07-12 17:24 | IPNPDOC ---
Date Seen The patient was seen on 07/12/20. Progress Note SUBJECTIVE: Patient is a [65]-year-old lady admitted with a pulmonary embolism. She has Iron deficiency anemia. She has a large hiatal hernia. She had a positive blood in her stools. Her hemoglobin has been stable over night. OBJECTIVE PHYSICAL EXAMINATION: VITAL SIGNS: Please see below. GENERAL: [awake and alert ] HEENT: [Normal ] CARDIOVASCULAR: [Regular rate and rhythm ]. RESPIRATORY: Bilateral breath sounds no wheezing ABDOMINAL: [ soft and non tender EXTREMITIES: [no pedal edema ] NEUROLOGICAL: [cranial nerves grossly intact. Moving all extremities. PSYCHOLOGICAL: [normal mood LABORATORY DATA, IMAGING STUDIES, MICROBIOLOGY: Please see below. Echocardiogram: . DVT prophylaxis ordered?: ASSESSMENT AND PLAN: This is a [65 ]-year-old lady with pulmonary embolism. She has a large hiatal hernia. The patient has received intravenous Iron. Her hemoglobin was stable overnight. She will need a gastrointestinal evaluation. We can start her on Omeprazole knowing that she has a large hiatal hernia . She is on anticoagulation for her pulmonary embolism . if discharged we can follow her anemia in the office. PROBLEMS: 1. :Pulmonary embolism 2. : .Hiatal hernia 3. : .Iron deficiency anemia . DISPOSITION: . VS, I&O, 24H, [facility] Vital Signs/I&O Vital Signs Date Time Temp Pulse Resp B/P (MAP) Pulse Ox O2 Delivery O2 Flow Rate FiO2 07/12/20 16:00 98.3 79 16 104/62 (76) 94 Room Air I&O- Last 24 Hours up to 6 AM 07/12/20 06:00 Intake Total 1380 ml Output Total 300 ml Balance 1080 ml Laboratory Data 24H LABS Laboratory Tests 2 07/11/20 21:44: Activated Partial Thromboplast Time 122.9*H 07/12/20 05:12: Activated Partial Thromboplast Time 56.4H, Immature Granulocyte % (Auto) 0.4, Neutrophils (%) (Auto) 69.0H, Lymphocytes (%) (Auto) 17.2L, Monocytes (%) (Auto) 12.4H, Eosinophils (%) (Auto) 0.3, Basophils (%) (Auto) 0.7, Neutrophils # (Auto) 4.7, Lymphocytes # (Auto) 1.2L, Monocytes # (Auto) 0.8, Eosinophils # (Auto) 0.0, Basophils # (Auto) 0.1, Nucleated Red Blood Cells % (auto) 0.0, Anion Gap 7L, Glomerular Filtration Rate > 60.0, Calcium Level 8.6L 07/12/20 08:10: Urine Color YELLOW, Urine Appearance CLEAR, Urine pH 5.0, Urine Specific [place] 1.035, Urine Protein NEGATIVE, Urine Glucose (Auto)(UA) NEGATIVE, Urine Ketones (Auto) NEGATIVE, Urine Blood NEGATIVE, Urine Nitrite NEGATIVE, Urine Bilirubin NEGATIVE, Urine Urobilinogen 0.2, Urine Leukocyte Esterase (Auto) NEGATIVE, Urine WBC (Auto) 1, Urine RBC (Auto) 0, Urine Hyaline Casts (Auto) 0, Urine Bacteria (Auto) NEGATIVE, Urine Squamous Epithelial Cells 2, Urine Sperm (Auto) 07/12/20 13:58: Activated Partial Thromboplast Time 101.8H CBC/BMP Laboratory Tests 07/11/20 18:14 07/12/20 05:12 Microbiology Microbiology 07/12/20 Stool Occult Blood (SILVESTRE) - Final, Complete 07/11/20 Stool Occult Blood (SILVESTRE) - Final, Complete NALINI RIVAS MD Jul 12, 2020 17:24
[2020-07-12] MEDS: HEPARIN DRIP 25,000 UNITS in IV 1 EA IV SCH (17:49)
[2020-07-12] MEDS: VERAPAMIL 120 MG SR TAB PO SCH (21:25)
[2020-07-13] VITALS (9 sets, daily range): BP systolic 100–129; BP diastolic 55–77
[2020-07-13 06:02] LABS: BASO % 0.8 % (0.0-1.0); EOS # 0.1 10^3/uL (0.0-0.5); HEMATOCRIT 26.4 % (36.0-47.0); HEMOGLOBIN 7.7 g/dl (12.0-15.5); LYMPH # 1.5 10^3/uL (1.5-5.0); LYMPH % 38.2 % (24.0-44.0); MEAN CORPUSCULAR HGB CONC 29.2 g/dl (32.0-36.5); MEAN CORPUSCULAR VOLUME 71.9 fl (80.0-96.0); MONO # 0.5 10^3/uL (0.0-0.8); MONO % 13.2 % (0.0-5.0); NEUTROPHILS # 1.8 10^3/uL (1.5-8.5); PLATELET COUNT, AUTOMATED 209 10^3/uL (150-450); RED BLOOD COUNT 3.67 10^6/uL (4.00-5.40)
[2020-07-13 06:19] LABS: BLOOD UREA NITROGEN 12 MG/DL (7-18); CALCIUM LEVEL 8.5 MG/DL (8.8-10.2); CARBON DIOXIDE LEVEL 28 MEQ/L (21-32); CHLORIDE LEVEL 109 MEQ/L (98-107); CREATININE FOR GFR 0.54 MG/DL (0.55-1.30); GLOMERULAR FILTRATION RATE > 60.0 (>45); GLUCOSE, FASTING 91 MG/DL (70-100); POTASSIUM SERUM 3.4 MEQ/L (3.5-5.1); SODIUM LEVEL 142 MEQ/L (136-145)
[2020-07-13] MEDS: DIVALPROEX 500MG *ER* TAB PO SCH (08:18)
[2020-07-13] MEDS: OMEPRAZOLE 20 MG CAP PO SCH (08:19)
[2020-07-13] MEDS ORDERED: FUROSEMIDE 40MG/4ML VIAL (J1940) IV ONE (10:00)
[2020-07-13] MEDS ORDERED: OMEP-218 PO (14:08)
--- NOTE | 2020-07-13 20:48 | DS.PDOC ---
Discharge Summary General Date of Admission Jul 10, 2020 at 18:04 Date of Discharge 07/13/20 Discharge Summary PROCEDURES PERFORMED DURING STAY: [None]. Bilateral Acute pulmonary embolism Acute on chronic anemia being worked up Iron deficiency anemia ? Slow GIB Hiatal hernia Migraine. Chronic right leg weakness COMPLICATIONS/CHIEF COMPLAINT: Pulmonary Emboism. HOSPITAL COURSE: 65 year old female with PMH of only Migraines presented to the ED with 1 day history of exertional dyspnea and palpitations. She was in her usal state of luis miguel yesterday. last night she was woken up from deep sleep with severe left calf cramping pain. It was 8/10 in intensity and lasted for several minutes then slowly improved with massaging the calf but did not go away completely. Today after climbing a flight of stairs in her home she became extremely winded and had to sit down for several minutes to catch her breath. All morning she has been feeling very winded and was getting winded even on talking on the phone with her daughter. She called her PMDs office and she was instructed to come to ED. In ED CT angio of the chest showed bilateral pulmonary embolism. Acute bilateral Pulmonary embolism hypercoagulable work up ordered s/p heparin infusion No DVT noted. Discharged with eliquis as per discussion with Dr Panchal from oncology. Acute on chronic Iron deficiency Anemia Probably has ongoing slow GIB. hh 8.2 Hb from sep 2019 from PMD was 10.0 Colonoscopy in 2018 was normal. given 500 mg of venofer stool occult blood x 1/3 positive Bleeding scan negative appreciate hematology input CT abd and pelvis with contrast negative except for hiatal hernia she will need EGD ad colonoscopy soon but in view of the acute Pulmonary embolism it is safer to hold off for 6 weeks unless patient started bleeding profusely. Follow up with Dr Panchal. Migraine continue home meds. 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 Hiatal hernia in CT started on omeprazole DISCHARGE MEDICATIONS: Please see below. ALLERGIES: Please see below. PHYSICAL EXAMINATION ON DISCHARGE: VITAL SIGNS: Please see below. General Exam: Positive: Alert, Cooperative, No Acute Distress Eye Exam: Positive: PERRLA, Conjunctiva & lids normal, EOMI; Negative: Sclera icteric ENT Exam: Positive: Atraumatic, Mucous membr. moist/pink, Pharynx Normal Neck Exam: Positive: Supple; Negative: JVD, thyromegaly Chest Exam: Positive: Clear to auscultation, Normal air movement Heart Exam: Positive: Rate Normal, Regular Rhythm, Normal S1, Normal S2; Negative: Murmurs, Rubs Telemetry: Positive: No significant arrhythmia Abdomen Exam: Positive: Normal bowel sounds, Soft; Negative: Tenderness, Hepatosplenomegaly Extremity Exam: Positive: Normal pulses, Tenderness (in left calf); Negative: Clubbing, Cyanosis, Edema Skin Exam: Positive: Nl turgor and temperature; Negative: Breakdown, Lesion Neuro Exam: Positive: Normal Speech, Normal Tone, Cranial Nerves 3-12 NL Psych Exam: Positive: Memory Intact, Oriented x 3 LABORATORY DATA: Please see below. IMAGING: PROGNOSIS: ACTIVITY: [As tolerated]. DIET: DISCHARGE PLAN: DISPOSITION: 01 Home, Self-Care. DISCHARGE INSTRUCTIONS: 1. . ITEMS TO FOLLOWUP ON ON OUTPATIENT: 1. . DISCHARGE CONDITION: [Stable]. TIME SPENT ON DISCHARGE: Greater than minutes. Vital Signs/I&Os Vital Signs Date Time Temp Pulse Resp B/P (MAP) Pulse Ox O2 Delivery O2 Flow Rate FiO2 07/13/20 16:00 Room Air 07/13/20 15:19 97.6 73 18 122/72 94 I&O- Last 24 Hours up to 6 AM 07/13/20 07:00 Intake Total 600 ml Output Total 1050 ml Balance -450 ml Laboratory Data Labs 24H Laboratory Tests 2 07/13/20 05:41: Immature Granulocyte % (Auto) 0.8, Neutrophils (%) (Auto) 45.0, Lymphocytes (%) (Auto) 38.2, Monocytes (%) (Auto) 13.2H, Eosinophils (%) (Auto) 2.0, Basophils (%) (Auto) 0.8, Neutrophils # (Auto) 1.8, Lymphocytes # (Auto) 1.5, Monocytes # (Auto) 0.5, Eosinophils # (Auto) 0.1, Basophils # (Auto) 0.0, Nucleated Red Blood Cells % (auto) 0.0, Activated Partial Thromboplast Time 65.5H, Anion Gap 5L, Glomerular Filtration Rate > 60.0, Calcium Level 8.5L CBC/BMP Laboratory Tests 07/13/20 05:41 Microbiology Microbiology 07/13/20 Stool Occult Blood (SILVESTRE) - Final, Complete 07/12/20 Stool Occult Blood (SILVESTRE) - Final, Complete 07/11/20 Stool Occult Blood (SILVESTRE) - Final, Complete Discharge Medications Scheduled Apixaban (Eliquis) 5 Mg Tablet, 1 TAB PO BID Divalproex Sodium (Divalproex Sodium ER) 500 Mg Tab.er.24h, 500 MG PO BID, (Reported) Omeprazole (Omeprazole) 20 Mg Capsule.dr, 40 MG PO DAILY Verapamil HCl (Verapamil ER) 240 Mg Cap24h.pel, 240 MG PO QHS, (Reported) Scheduled PRN Sumatriptan Succinate (Sumatriptan Succinate) 50 Mg Tab, 50 MG PO ASDIRECTED PRN for MIGRAINE, (Reported) Allergies Coded Allergies: amoxicillin (Verified Allergy, Unknown, 07/10/20) erythromycin base (Verified Allergy, Unknown, 07/10/20) LUIS ENRIQUE ROSADO MD Jul 13, 2020 20:48
== END 2020-07-13 17:28 | disposition home or self-care (01) | DRG 176 ==
LOC: M ED 12:27 → M ED INP 18:04 → ENRESERV 18:22 → M PCU 18:52
PROVIDERS: ADMIT Internal Medicine Nephrology; ATTEND Internal Medicine Nephrology
PROC: 30233N1 Transfusion of Nonautologous Red Blood Cells into Peripheral Vein, Percutaneous Approach (ICD-10-PCS; principal; 2020-07-13)
DX: I26.99 Other pulmonary embolism without acute cor pulmonale (principal); K92.2 Gastrointestinal hemorrhage, unspecified; G43.909 Migraine, unspecified, not intractable, without status migrainosus; K44.9 Diaphragmatic hernia without obstruction or gangrene; D50.9 Iron deficiency anemia, unspecified; Z79.899 Other long term (current) drug therapy; Z88.0 Allergy status to penicillin; Z88.1 Allergy status to other antibiotic agents

== ENCOUNTER → 2020-07-25 | Outpatient (REF) | payer MEDICARE, OTHER ==
[~2020-07-25] MED LIST changes: +DIVA500T9 PO; +ELIQ5TAB PO; +OMEP-218 PO; +VERA240C PO
[2020-07-25 17:23] LABS: PERCENT SATURATION 57.1 % (13.2-45.0)
== END ==
LOC: M LAB REF 16:16
PROVIDERS: ATTEND Internal Medicine
DX: D50.9 Iron deficiency anemia, unspecified (principal)

== ENCOUNTER → 2020-08-17 | Outpatient (CLI) | payer MEDICARE, OTHER | LOC: M LABSMTC 10:04 | PROVIDERS: ATTEND Anesthesiology | DX: Z01.818 Encounter for other preprocedural examination (principal); Z20.828 Contact with and (suspected) exposure to other viral communicable diseases ==

== ENCOUNTER 2020-08-22 12:29 | Day surgery (SDC) | payer MEDICARE, OTHER ==
[~2020-08-22] VITALS: Ht 172.7 cm; Wt 94.3 kg
[~2020-08-22 12:29] MED LIST changes: +NS 1,000 ML IV ONE
[2020-08-22] MEDS ORDERED: propofoL 200 MG/20 ML VIAL As Ordered ONE (13:53)
[2020-08-22] MEDS ORDERED: LIDOCAINE 2% 100MG/5ML SDV (FOR ANES.) As Ordered ONE ×2 (13:53→13:54)
--- NOTE | 2020-08-22 14:28 | ROOR ---
Patient Name: Carmen Holguin Procedure Date: 08/22/2020 1:59 PM Date of : 1955 Age: 65 Room: [facility] Gender: Female Note Status: Finalized Procedure: Upper GI endoscopy Indications: Iron deficiency anemia Providers: Kaiser Ring Jr, MD Referring MD: Elijah Walsh Jr, Md Requesting Provider: Medicines: Propofol per Anesthesia Complications: No immediate complications. Procedure: Pre-Anesthesia Assessment: - Prior to the procedure, a History and Physical was performed, and patient medications and allergies were reviewed. The patient is competent. The risks and benefits of the procedure and the sedation options and risks were discussed with the patient. All questions were answered and informed consent was obtained. Patient identification and proposed procedure were verified by the physician and the nurse in the pre-procedure area and in the procedure room. Mental Status Examination: alert and oriented. Airway Examination: normal oropharyngeal airway and neck mobility. Respiratory Examination: clear to auscultation. CV Examination: normal. ASA Grade Assessment: II - A patient with mild systemic disease. After reviewing the risks and benefits, the patient was deemed in satisfactory condition to undergo the procedure. The anesthesia plan was to use moderate sedation / analgesia (conscious sedation). Immediately prior to administration of medications, the patient was re-assessed for adequacy to receive sedatives. The heart rate, respiratory rate, oxygen saturations, blood pressure, adequacy of pulmonary ventilation, and response to care were monitored throughout the procedure. The physical status of the patient was re-assessed after the procedure. The Endoscope was introduced through the mouth, and advanced to the second part of duodenum. The upper GI endoscopy was accomplished without difficulty. The patient tolerated the procedure well. Findings: The upper third of the esophagus, middle third of the esophagus and lower third of the esophagus were normal. A large hiatal hernia was present. The gastric body, gastric antrum and pylorus were normal. Localized moderate inflammation characterized by congestion (edema), erythema, friability and granularity was found in the prepyloric region of the stomach. The first portion of the duodenum and second portion of the duodenum were normal. Patchy mildly erythematous mucosa without active bleeding and with no stigmata of bleeding was found in the duodenal bulb. Impression: - Normal upper third of esophagus, middle third of esophagus and lower third of esophagus. - Large hiatal hernia. - Normal gastric body, antrum and pylorus. - Gastritis. - Normal first portion of the duodenum and second portion of the duodenum. - Erythematous duodenopathy. - No specimens collected. Recommendation: - Discharge patient to home (ambulatory). - Return to my office as previously scheduled. Procedure Code(s): --- Professional --- 18962, Esophagogastroduodenoscopy, flexible, transoral; diagnostic, including collection of specimen(s) by brushing or washing, when performed (separate procedure) Diagnosis Code(s): --- Professional --- K44.9, Diaphragmatic hernia without obstruction or gangrene K29.70, Gastritis, unspecified, without bleeding K31.89, Other diseases of stomach and duodenum D50.9, Iron deficiency anemia, unspecified CPT copyright 2019 [employer]. All rights reserved. The codes documented in this report are preliminary and upon mail truck driver review may be revised to meet current compliance requirements. Kaiser Ring MD Kaiser Ring Jr, MD 08/22/2020 2:27:50 PM Electronically signed by Kaiser Ring Jr, MD Number of Addenda: 0 Note Initiated On: 08/22/2020 1:59 PM Estimated Blood Loss: Estimated blood loss: none.
[2020-08-22 14:40] VITALS: BP 126/63
== END 2020-08-22 14:35 | disposition home or self-care (01) ==
LOC: M OPP 12:29
PROVIDERS: ATTEND Surgery
DX: D50.9 Iron deficiency anemia, unspecified (principal); K31.89 Other diseases of stomach and duodenum; K44.9 Diaphragmatic hernia without obstruction or gangrene; K29.70 Gastritis, unspecified, without bleeding

== ENCOUNTER → 2020-09-09 | Outpatient (REF) | payer MEDICARE, OTHER ==
[~2020-09-09] MED LIST changes: -NS 1,000 ML IV ONE
[2020-09-09 18:03] LABS: PERCENT SATURATION 27.6 % (13.2-45.0)
== END ==
LOC: M LAB REF 16:22
PROVIDERS: ATTEND Internal Medicine
DX: D50.9 Iron deficiency anemia, unspecified (principal)

== ENCOUNTER 2020-12-02 14:09 | Emergency (ER) | payer MEDICARE, OTHER ==
[~2020-12-02] VITALS: Ht 172.7 cm; Wt 97.5 kg
[2020-12-02 18:00] LABS: BASO % 0.7 % (0.0-1.0); EOS # 0.1 10^3/uL (0.0-0.5); EOS % 1.5 % (0.0-3.0); HEMATOCRIT 38.4 % (36.0-47.0); HEMOGLOBIN 12.6 g/dl (12.0-15.5); LYMPH # 1.4 10^3/uL (1.5-5.0); LYMPH % 35.2 % (24.0-44.0); MEAN CORPUSCULAR HEMOGLOBIN 30.9 pg (27.0-33.0); MEAN CORPUSCULAR HGB CONC 32.8 g/dl (32.0-36.5); MEAN CORPUSCULAR VOLUME 94.1 fl (80.0-96.0); MONO # 0.7 10^3/uL (0.0-0.8); MONO % 17.2 % (2.0-8.0); NEUTROPHILS # 1.8 10^3/uL (1.5-8.5); NEUTROPHILS % 44.9 % (36.0-66.0); PLATELET COUNT, AUTOMATED 179 10^3/uL (150-450); RED BLOOD COUNT 4.08 10^6/uL (4.00-5.40)
[2020-12-02] MEDS ORDERED: ISOVUE-370 76% 100ML VIAL As Ordered ONE (18:22)
[2020-12-02 18:35] LABS: ALBUMIN 3.1 GM/DL (3.2-5.2); ALT/SGPT 27 U/L (12-78); BILIRUBIN,DIRECT < 0.1 MG/DL (0.0-0.2); BILIRUBIN,TOTAL 0.2 MG/DL (0.2-1.0); LIPASE 106 U/L (73-393)
--- NOTE | 2020-12-02 18:51 | REPVR ---
PROCEDURE INFORMATION: Exam: CT Abdomen And Pelvis With Contrast Exam date and time: 12/02/2020 6:16 PM Age: 65 years old Clinical indication: Other: Lower gi bleeding TECHNIQUE: Imaging protocol: Computed tomography of the abdomen and pelvis with contrast. Radiation optimization: All CT scans at this facility use at least one of these dose optimization techniques: automated exposure control; mA and/or kV adjustment per patient size (includes targeted exams where dose is matched to clinical indication); or iterative reconstruction. Contrast material: ISOVUE 370; Contrast volume: 100 ml; Contrast route: INTRAVENOUS (IV); COMPARISON: CT ABD/PEL W/IV ORAL CONTRAS 07/11/2020 8:23 PM FINDINGS: Mediastinal space: A moderate paraesophageal hiatal hernia is present. Liver: Subcentimeter hepatic lucency in the inferior aspect of the right lobe of the liver likely represents a small cyst or other benign focus such as a biliary hamartoma. Liver otherwise unremarkable. Gallbladder and bile ducts: Normal. No calcified stones. No ductal dilation. Pancreas: Normal. No ductal dilation. Spleen: Normal. No splenomegaly. Adrenal glands: Normal. No mass. Kidneys and ureters: 1.3 cm simple cyst upper pole right kidney. No follow-up suggested. Stomach and bowel: Unremarkable. No obstruction. No mucosal thickening. Appendix: No evidence of appendicitis. Intraperitoneal space: Unremarkable. No free air. No significant fluid collection. Vasculature: Unremarkable. No abdominal aortic aneurysm. Lymph nodes: Unremarkable. No enlarged lymph nodes. Urinary bladder: Unremarkable as visualized. Reproductive: Unremarkable as visualized. Bones/joints: Mild central spinal stenosis L4-L5. Soft tissues: Unremarkable. IMPRESSION: 1. A moderate paraesophageal hiatal hernia is present. 2. No acute findings. COMMENTS: Consistent with the [employer]'s Incidental Findings Committee white paper (J Am Kain Radiol 2018): Any incidental renal lesion less than 1 cm or classified as too small to characterize, or any incidental cystic renal lesion characterized as simple-appearing, is likely benign. No follow-up imaging is recommended for these lesions per consensus recommendations based on imaging criteria. Electronically signed by: Levi Balderas On 12/02/2020 18:52:02 PM
[2020-12-02 19:52] LABS: INR 1.04; PROTHROMBIN TIME 13.8 SECONDS (12.5-14.3)
[2020-12-02 20:15] VITALS: BP 126/81
--- NOTE | 2020-12-04 14:44 | ED PDOC ---
Post-Departure Follow-Up ct abd/p faxed to dr maldonado for fu Isabela Ballard MD Dec 04, 2020 14:44
== END 2020-12-02 20:18 | disposition home or self-care (01) ==
LOC: M ED 14:09
DX: K92.2 Gastrointestinal hemorrhage, unspecified (principal); K92.1 Melena; K44.9 Diaphragmatic hernia without obstruction or gangrene; N28.1 Cyst of kidney, acquired; M48.061 Spinal stenosis, lumbar region without neurogenic claudication; R51.9 Headache, unspecified; K21.9 Gastro-esophageal reflux disease without esophagitis; Z86.711 Personal history of pulmonary embolism; Z88.1 Allergy status to other antibiotic agents; Z88.8 Allergy status to other drugs, medicaments and biological substances; Z79.899 Other long term (current) drug therapy; Z79.01 Long term (current) use of anticoagulants
CPT/HCPCS: 36415; 74177; 80047; 80076; 83690; 85025; 85610; 85730; 86850; 86900; 86901; 99284; Q9967

== ENCOUNTER → 2020-12-13 | Outpatient (REF) | payer MEDICARE, OTHER | LOC: M LAB REF 13:55 | PROVIDERS: ATTEND Physician Assistant | DX: C44.212 Basal cell carcinoma of skin of right ear and external auricular canal (principal) | CPT/HCPCS: 11102; 17110; 88305; G0463 ==

== ENCOUNTER → 2021-01-14 | Outpatient (REF) | payer MEDICARE, OTHER | LOC: M LAB REF 12:20 | PROVIDERS: ATTEND Internal Medicine | DX: D50.9 Iron deficiency anemia, unspecified (principal) ==

== ENCOUNTER 2021-04-24 04:38 | Emergency (ER) | payer MEDICARE, OTHER ==
[~2021-04-24] VITALS: Ht 172.7 cm; Wt 99.2 kg
[2021-04-24 05:31] LABS: BASO % 0.6 % (0.0-1.0); EOS # 0.1 10^3/uL (0.0-0.5); EOS % 1.5 % (0.0-3.0); HEMATOCRIT 39.7 % (36.0-47.0); HEMOGLOBIN 13.1 g/dl (12.0-15.5); LYMPH % 43.3 % (24.0-44.0); MEAN CORPUSCULAR VOLUME 91.1 fl (80.0-96.0); MONO # 0.4 10^3/uL (0.0-0.8); MONO % 9.3 % (2.0-8.0); NEUTROPHILS # 2.1 10^3/uL (1.5-8.5); NEUTROPHILS % 45.1 % (36.0-66.0); PLATELET COUNT, AUTOMATED 231 10^3/uL (150-450); RED BLOOD COUNT 4.36 10^6/uL (4.00-5.40); WHITE BLOOD COUNT 4.6 10^3/uL (4.0-10.0)
[2021-04-24 05:43] LABS: INR 1.01; PROTHROMBIN TIME 13.7 SECONDS (12.7-14.5)
[2021-04-24 05:58] LABS: ALBUMIN 3.5 GM/DL (3.2-5.2); ALT/SGPT 26 U/L (12-78); BILIRUBIN,DIRECT < 0.1 MG/DL (0.0-0.2); BILIRUBIN,TOTAL 0.4 MG/DL (0.2-1.0); CK-MB VALUE MASS < 1.0 NG/ML (<3.6); CPK CREATINE PHOSPHOKINASE 34 U/L (26-192); LIPASE 153 U/L (73-393); MB/CK RELATIVE INDEX 2.94 (< OR =4); TOTAL PROTEIN 6.3 GM/DL (6.4-8.2); TROPONIN I < 0.02 NG/ML (< 0.10)
--- NOTE | 2021-04-24 06:38 | REPVR ---
PROCEDURE INFORMATION: Exam: XR Chest Exam date and time: 04/24/2021 4:55 AM Age: 66 years old Clinical indication: Other: Cp; Additional info: Chest pain TECHNIQUE: Imaging protocol: XR of the chest. Views: 1 view. COMPARISON: MD PORTABLE CHEST X-RAY 07/10/2020 1:33 PM FINDINGS: Lungs: Emphysematous change and interstitial prominence.. Pleural spaces: No pleural effusion Heart/Mediastinum: Epicardial fat accentuates the cardiac silhouette. Questionable hiatal hernia. Bones/joints: Mild degenerative change. IMPRESSION: Emphysematous change and interstitial prominence.. Electronically signed by: Kt Hdz On 04/24/2021 06:37:47 AM
[2021-04-24] MEDS ORDERED: ASPIRIN 81 MG CHEW TABLET PO ONE (07:20)
[2021-04-24] MEDS ORDERED: NITROGLYCERIN 0.4 MG SUBL TABLET SL PRN (07:20)
[2021-04-24 07:46] VITALS: BP 129/78
[2021-04-24 07:46] LABS: BLOOD UREA NITROGEN 14 MG/DL (7-18); CALCIUM LEVEL 8.9 MG/DL (8.8-10.2); CARBON DIOXIDE LEVEL 27 MEQ/L (21-32); CHLORIDE LEVEL 109 MEQ/L (98-107); CREATININE FOR GFR 0.69 MG/DL (0.55-1.30); GLOMERULAR FILTRATION RATE > 60.0 (>45); GLUCOSE, FASTING 103 MG/DL (70-100); POTASSIUM SERUM 3.8 MEQ/L (3.5-5.1); SODIUM LEVEL 141 MEQ/L (136-145)
[2021-04-24] MEDS ORDERED: ISOVUE-370 76% 100ML VIAL As Ordered ONE (08:10)
--- NOTE | 2021-04-24 08:39 | REP ---
INDICATION: CP r/o PE. COMPARISON: 07/10/2020. TECHNIQUE: CT angiogram chest performed following the intravenous administration of 100 cc of Isovue 370. Sagittal and coronal reconstruction images are performed. FINDINGS: Lungs: Clear, no infiltrate or nodule. Mediastinum: No adenopathy. Pulmonary arteries: No evidence of pulmonary embolism. Bruna: No adenopathy. Axilla: No adenopathy. Pleura: No effusion. Heart: Not enlarged. Thoracic aorta: No aneurysm or dissection. Upper abdominal structures: There is a large hiatal hernia. Low-density nodule upper pole right kidney is stable, probably representing a cyst. Visualized osseous structures: There are degenerative changes of the spine without compression deformity. IMPRESSION: No CT evidence of pulmonary embolism. No infiltrate seen. <Electronically signed by Sonu Mustafa > 04/24/21 1732
[2021-04-24] MEDS ORDERED: APIXABAN 5 MG TAB (ELIQUIS) PO ONE (09:25)
[2021-04-24] MEDS ORDERED: OMEPRAZOLE 20 MG CAP PO ONE (09:25)
--- NOTE | 2021-04-24 10:48 | REP ---
INDICATION: pain COMPARISON: None. 07/10/2020. TECHNIQUE: Real time compression and duplex Doppler interrogation of the right lower extremity deep venous system is performed, including the left common femoral vein.Compression of the right peroneal and posterior tibial veins is performed. FINDINGS: The right common femoral, superficial femoral and popliteal veins are fully compressible with transducer pressure and demonstrate normal spontaneous and phasic flow, without evidence of deep venous thrombosis.The left common femoral vein demonstrates no thrombus.The visualized right peroneal and posterior tibial veins demonstrate no thrombus. IMPRESSION: No evidence of deep venous thrombosis of the right lower extremity femoral popliteal venous system.The visualized right peroneal and posterior tibial veins demonstrate no thrombus. <Electronically signed by Sonu Mustafa > 04/24/21 1041
[2021-04-24 12:28] LABS: CK-MB VALUE MASS < 1.0 NG/ML (<3.6); CPK CREATINE PHOSPHOKINASE 30 U/L (26-192); MB/CK RELATIVE INDEX 3.33 (< OR =4); TROPONIN I < 0.02 NG/ML (< 0.10)
[2021-04-24 12:45] VITALS: BP 133/65
[2021-04-24] MEDS ORDERED: CARA1TAB6 PO (13:31)
--- NOTE | 2021-04-25 06:41 | ECGEPIP ---
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
== END 2021-04-24 14:06 | disposition home or self-care (01) ==
LOC: M ED 04:38
DX: R07.9 Chest pain, unspecified (principal); Z79.01 Long term (current) use of anticoagulants; Z79.899 Other long term (current) drug therapy; Z88.0 Allergy status to penicillin; Z88.1 Allergy status to other antibiotic agents; Z86.711 Personal history of pulmonary embolism

== ENCOUNTER → 2021-06-11 | Outpatient (REF) | payer MEDICARE, OTHER ==
[~2021-06-11] MED LIST changes: +CARA1TAB6 PO
== END ==
LOC: M LAB REF 17:32
PROVIDERS: ATTEND Physician Assistant
DX: Z12.31 Encounter for screening mammogram for malignant neoplasm of breast (principal); L82.1 Other seborrheic keratosis; Z80.0 Family history of malignant neoplasm of digestive organs; Z80.3 Family history of malignant neoplasm of breast
CPT/HCPCS: 11102; 11900; 77063; 77067; 88305; G0463; J3301

== ENCOUNTER → 2021-06-11 | Outpatient (CLI) | payer MEDICARE, OTHER ==
--- NOTE | 2021-06-11 16:28 | REPMRS ---
Patient History The patient states she has not had a clinical breast exam in over a year. Family history of colorectal cancer at age 50 or over and breast cancer at age 50 or over in maternal grandmother. No Hormone Replacement Therapy Patient states no breast complaints today. Patient has signed MRS History Sheet. Digital Woman Screen Mammo: June 11, 2021 - Exam #: [id number] Bilateral CC and MLO view(s) were taken. Technologist: Tereza Jacobs, Technologist Prior study comparison: June 05, 2020, bilateral digital woman screen mammo performed at [facility]. May 12, 2019, bilateral digital woman screen mammo performed at [facility]. April 25, 2018, bilateral digital woman screen mammo performed at [facility]. FINDINGS: There are scattered fibroglandular densities. The Volpara volumetric breast density category is:B. There has been no change in the appearance of the mammogram from the prior studies. There is a mild amount of scattered fibroglandular density which is fairly symmetric. There is no interval development of dominant mass, architectural distortion, or grouped microcalcification suggestive of malignancy. 3-D tomosynthesis shows no additional findings. Assessment: BI-RADS/ACR category 1 mammogram. Negative Mammogram. Recommendation Routine screening mammogram of both breasts in 1 year (for women over age 40). This patient's [facility] Lifetime Breast Cancer Risk is estimated at 7.7 %. This mammogram was interpreted with the aid of an FDA-approved computer-aided dectection system. Electronically Signed By: Jesus Ren MD 06/11/21 [id number]
== END ==
LOC: M WHC 14:30
PROVIDERS: ATTEND Internal Medicine
DX: Z12.31 Encounter for screening mammogram for malignant neoplasm of breast (principal); Z80.0 Family history of malignant neoplasm of digestive organs; Z80.3 Family history of malignant neoplasm of breast

== ENCOUNTER → 2021-09-10 | Outpatient (REF) | payer MEDICARE, OTHER ==
[2021-09-10 17:48] LABS: PERCENT SATURATION 49.7 % (13.2-45.0)
== END ==
LOC: M LAB REF 16:51
PROVIDERS: ATTEND Internal Medicine
DX: D50.9 Iron deficiency anemia, unspecified (principal)

== ENCOUNTER → 2022-01-05 | Outpatient (REF) | payer MEDICARE, OTHER ==
[~2022-01-05] MED LIST changes: +OMEP-173 PO; -OMEP-218 PO
== END ==
LOC: M SFHCDERM 14:18
PROVIDERS: ATTEND Nurse Practitioner Family
DX: L57.0 Actinic keratosis (principal)

== ENCOUNTER → 2022-02-10 | Outpatient (REF) | payer MEDICARE, OTHER ==
[2022-02-10 17:27] LABS: PERCENT SATURATION 37.5 % (13.2-45.0)
== END ==
LOC: M LAB REF 16:27
PROVIDERS: ATTEND Internal Medicine
DX: D50.9 Iron deficiency anemia, unspecified (principal)

== ENCOUNTER → 2022-02-11 | Outpatient (CLI) | payer MEDICARE, OTHER | LOC: M WUC 09:30 | PROVIDERS: ATTEND Internal Medicine | DX: R05.9 Cough, unspecified (principal); Z86.16 Personal history of COVID-19 ==

== ENCOUNTER → 2022-06-18 | Outpatient (CLI) | payer MEDICARE, OTHER | LOC: M WHC 11:09 | PROVIDERS: ATTEND Nurse Practitioner Adult Health | DX: Z12.31 Encounter for screening mammogram for malignant neoplasm of breast (principal) ==

== ENCOUNTER → 2023-01-15 | Outpatient (REF) | payer MEDICARE, OTHER | LOC: M SFHCDERM 08:26 | PROVIDERS: ATTEND Nurse Practitioner Family | DX: L57.8 Other skin changes due to chronic exposure to nonionizing radiation (principal); L81.9 Disorder of pigmentation, unspecified ==

== ENCOUNTER → 2023-02-19 | Outpatient (REF) | payer MEDICARE, OTHER ==
[2023-02-19 18:01] LABS: PERCENT SATURATION 14.2 % (13.2-45.0)
[2023-02-19 18:04] LABS: FERRITIN 9.5 NG/ML (7.3-270.7)
== END ==
LOC: M LAB REF 17:01
PROVIDERS: ATTEND Internal Medicine
DX: D50.9 Iron deficiency anemia, unspecified (principal)

== ENCOUNTER → 2023-03-15 | Outpatient (CLI) | payer MEDICARE, OTHER | LOC: M WHC 09:47 | PROVIDERS: ATTEND Internal Medicine | DX: M81.0 Age-related osteoporosis without current pathological fracture (principal) ==

== ENCOUNTER → 2023-06-22 | Outpatient (CLI) | payer MEDICARE, OTHER | LOC: M WHC 12:43 | PROVIDERS: ATTEND Internal Medicine | DX: Z12.31 Encounter for screening mammogram for malignant neoplasm of breast (principal) ==

== ENCOUNTER → 2023-08-12 | Outpatient (REF) | payer MEDICARE, OTHER ==
[2023-08-12 14:36] LABS: PERCENT SATURATION 34.4 % (13.2-45.0)
== END ==
LOC: M LAB REF 12:37
PROVIDERS: ATTEND Internal Medicine
DX: D50.9 Iron deficiency anemia, unspecified (principal)

== ENCOUNTER → 2024-06-27 | Outpatient (CLI) | payer MEDICARE, OTHER | LOC: M WHC 12:24 | PROVIDERS: ATTEND Internal Medicine | DX: Z12.31 Encounter for screening mammogram for malignant neoplasm of breast (principal) ==

== ENCOUNTER → 2024-09-04 | Outpatient (CLI) | payer MEDICARE, OTHER | LOC: M RAD 16:51 | PROVIDERS: ATTEND Internal Medicine | DX: R10.30 Lower abdominal pain, unspecified (principal); R14.0 Abdominal distension (gaseous); K44.9 Diaphragmatic hernia without obstruction or gangrene ==

== ENCOUNTER → 2025-06-29 | Outpatient (CLI) | payer MEDICARE, OTHER | LOC: M WHC 10:07 | PROVIDERS: ATTEND Internal Medicine | DX: Z12.31 Encounter for screening mammogram for malignant neoplasm of breast (principal) ==